=== PATIENT | male | born 1990 | race Hispanic/Latino ===

== ENCOUNTER 2023-06-01 10:59 | Emergency (ER) | payer OTHER ==
[~2023-06-01] VITALS: Ht 170.2 cm; Wt 90.1 kg
[2023-06-01] MEDS ORDERED: INDO50CA91 PO (13:42)
[2023-06-01 13:49] VITALS: BP 134/79; TEMP 98.3; O2SAT 100
== END 2023-06-01 13:57 | disposition home or self-care (01) ==
LOC: M ED 10:59
DX: M65.271 Calcific tendinitis, right ankle and foot (principal); M25.571 Pain in right ankle and joints of right foot; Z79.899 Other long term (current) drug therapy

== ENCOUNTER → 2024-11-13 | Outpatient (CLI) | payer OTHER ==
[~2024-11-13] MED LIST: INDO50CA91 PO
== END ==
LOC: M CARPUL 09-27 13:19
PROVIDERS: ATTEND Physician Assistant
DX: R07.89 Other chest pain (principal)

== ENCOUNTER → 2024-12-11 | Outpatient (CLI) | payer OTHER ==
[~2024-12-11] MED LIST changes: +METHACHOLINE KIT (6 VIAL.NEB PREMIX) INH ONE
== END ==
LOC: M CARPUL 12:31
PROVIDERS: ATTEND Physician Assistant
DX: R07.89 Other chest pain (principal)